=== PATIENT | female | born 2000 | race American Indian/Alaskan Native ===

== ENCOUNTER 2021-04-09 15:14 | Emergency (ER) | payer BC ==
[2021-04-09] MEDS ORDERED: fentaNYL 100 MCG/2 ML INJ ONE (16:45)
[2021-04-09] MEDS ORDERED: METOCLOPRAMIDE 10 MG/2 ML INJ IV ONE (16:49)
[2021-04-09] MEDS ORDERED: fentaNYL 100 MCG/2 ML INJ IV ONE ×2 (16:49→18:10)
[2021-04-09] MEDS ORDERED: SODIUM CHLORIDE 0.9% 1000 ML 1,000 ML IV ONE (16:49)
--- NOTE | 2021-04-09 16:53 | Emergency Department Report ---
HPI - General Chief Complaint: Abdominal Pain Time Seen by Provider: 04/09/21 16:23 - HPI HPI: Room 4 The patient is a 20-year-old female present with a chief complaint of nausea vomiting diarrhea. The patient states she ate a chicken biscuit yesterday morning and approximate 30 minutes later developed nausea vomiting diarrhea. Patient states after frequent vomiting she developed periumbilical pain. Patient states she is uncertain if she developed a fever. Patient denies dysuria. Patient currently gives her pain a score of 8.5/10 ED Past Medical Hx - Past Medical History Hx Psychiatric Treatment: Yes (anxiety, depression) - Surgical History Past Surgical History?: No - Family History Family history: no significant - Social History Smoking Status: Never Smoker Substance Use Type: None (Denies illicit drug use), Alcohol (Occasional) - Medications Home Medications: Home Medications Medication Instructions Recorded Confirmed Last Taken Type Ciprofloxacin HCl 500 mg PO BID #20 tablet 04/09/21 Unknown Rx Dicyclomine [Bentyl] 20 mg PO QID #20 tablet 04/09/21 Unknown Rx HYDROcodone/APAP 5-325 [[place] 1 - 2 each PO Q6HR PRN #10 tablet 04/09/21 Unknown Rx 5/325] Promethazine [Phenergan] 25 mg PO Q6HR PRN #20 tab 04/09/21 Unknown Rx Promethazine [Phenergan] 25 mg NC Q6HR PRN #5 supp.rect 04/09/21 Unknown Rx ED Review of Systems ROS: Stated complaint: N/V Other details as noted in HPI Constitutional: fever (?) Eyes: denies: eye pain ENT: denies: throat pain Respiratory: no symptoms reported Cardiovascular: denies: chest pain Endocrine: no symptoms reported Gastrointestinal: abdominal pain, nausea, vomiting, diarrhea Genitourinary: denies: dysuria Musculoskeletal: denies: back pain Neurological: denies: headache Physical Exam - Physical Exam Vital Signs: Vital Signs 04/09/21 16:11 Temperature 97.4 F L Pulse Rate 82 Respiratory 18 Rate Blood Pressure 134/35 O2 Sat by Pulse 100 Oximetry Physical Exam: GENERAL: The patient is well-developed well-nourished female lying on stretcher appearing to be in moderate discomfort with occasional shaking chills. [] HEENT: Normocephalic. Atraumatic. Extraocular motions are intact. NECK: Supple. Trachea midline CHEST/LUNGS: Clear to auscultation. There is no respiratory distress noted. HEART/CARDIOVASCULAR: Regular. There is no tachycardia. There is no gallop rub or murmur. ABDOMEN: Abdomen is soft, without voluntary guarding or rebound. Patient complains of periumbilical pain. Patient has normal bowel sounds. There is no abdominal distention. SKIN: There is no rash. There is no edema. There is no diaphoresis. NEURO: The patient is awake, alert, and oriented. The patient is cooperative. The patient has no focal neurologic deficits. The patient has normal speech MUSCULOSKELETAL: There is no evidence of acute injury. ED Course Vital Signs 04/09/21 16:11 Temperature 97.4 F L Pulse Rate 82 Respiratory 18 Rate Blood Pressure 134/35 O2 Sat by Pulse 100 Oximetry - Reevaluation(s) Reevaluation #1: 04/09/21 21:26 Patient passed p.o. challenge ED Medical Decision Making - Lab Data Result diagrams: 04/09/21 17:06 04/09/21 17:06 Laboratory Tests 04/09/21 04/09/21 04/09/21 17:06 17:06 17:06 WBC 16.8 H RBC 4.42 Hgb 13.3 Hct 39.1 MCV 89 MCH 30 MCHC 34 RDW 12.4 L Plt Count 258 Add Manual Diff Complete Total Counted 100 Seg Neutrophils % External Relations Director Seg Neuts % (Manual) 86.0 H Lymphocytes % (Manual) 10.0 L Monocytes % (Manual) 4.0 Nucleated RBC % Not Reportable Seg Neutrophils # Man 14.4 H Band Neutrophils # 0.0 Lymphocytes # (Manual) 1.7 Abs React Lymphs (Man) 0.0 Monocytes # (Manual) 0.7 Eosinophils # (Manual) 0.0 Basophils # (Manual) 0.0 Metamyelocytes # 0.0 Myelocytes # 0.0 Promyelocytes # 0.0 Blast Cells # 0.0 WBC Morphology Not Reportable Hypersegmented Neuts Not Reportable Hyposegmented Neuts Not Reportable Hypogranular Neuts Not Reportable Smudge Cells Not Reportable Toxic Granulation Not Reportable Toxic Vacuolation Not Reportable Dohle Bodies Not Reportable Pelger-Huet Anomaly Not Reportable Latasha Rods Not Reportable Platelet Estimate Not Reportable Clumped Platelets Not Reportable Plt Clumps, EDTA Not Reportable Large Platelets Not Reportable Giant Platelets Not Reportable Platelet Satelliting Not Reportable Plt Morphology Comment Not Reportable RBC Morphology Normal Dimorphic RBCs Not Reportable Polychromasia Not Reportable Hypochromasia Not Reportable Poikilocytosis Not Reportable Anisocytosis Not Reportable Microcytosis Not Reportable Macrocytosis Not Reportable Spherocytes Not Reportable Pappenheimer Bodies Not Reportable Sickle Cells Not Reportable Target Cells Not Reportable Tear Drop Cells Not Reportable Ovalocytes Not Reportable Helmet Cells Not Reportable Nicholson-Fries Bodies Not Reportable [place] Rings Not Reportable [place] Cells Not Reportable Bite Cells Not Reportable Crenated Cell Not Reportable Elliptocytes Not Reportable Acanthocytes (Spur) Not Reportable Rouleaux Not Reportable Hemoglobin C Crystals Not Reportable Schistocytes Not Reportable Malaria parasites Not Reportable Frank Bodies Not Reportable Hem Pathologist Commnt No Sodium 141 Potassium 3.7 Chloride 106.5 Carbon Dioxide 18 L Anion Gap 20 BUN 13 Creatinine 1.2 Estimated GFR > 60 BUN/Creatinine Ratio 11 Glucose 152 H Calcium 9.3 Total Bilirubin 0.40 AST 23 ALT 19 Alkaline Phosphatase 68 Total Protein 7.8 Albumin 4.5 Albumin/Globulin Ratio 1.4 Lipase 14 HCG, Qual Negative Urine Color Urine Turbidity Urine pH Ur Specific [place] Urine Protein Urine Glucose (UA) Urine Ketones Urine Blood Urine Nitrite Urine Bilirubin Urine Urobilinogen Ur Leukocyte Esterase Urine WBC (Auto) Urine RBC (Auto) U Epithel Cells (Auto) Urine Mucus 04/09/21 Unknown WBC RBC Hgb Hct MCV MCH MCHC RDW Plt Count Add Manual Diff Total Counted Seg Neutrophils % Seg Neuts % (Manual) Lymphocytes % (Manual) Monocytes % (Manual) Nucleated RBC % Seg Neutrophils # Man Band Neutrophils # Lymphocytes # (Manual) Abs React Lymphs (Man) Monocytes # (Manual) Eosinophils # (Manual) Basophils # (Manual) Metamyelocytes # Myelocytes # Promyelocytes # Blast Cells # WBC Morphology Hypersegmented Neuts Hyposegmented Neuts Hypogranular Neuts Smudge Cells Toxic Granulation Toxic Vacuolation Dohle Bodies Pelger-Huet Anomaly Latasha Rods Platelet Estimate Clumped Platelets Plt Clumps, EDTA Large Platelets Giant Platelets Platelet Satelliting Plt Morphology Comment RBC Morphology Dimorphic RBCs Polychromasia Hypochromasia Poikilocytosis Anisocytosis Microcytosis Macrocytosis Spherocytes Pappenheimer Bodies Sickle Cells Target Cells Tear Drop Cells Ovalocytes Helmet Cells Nicholson-Fries Bodies [place] Rings [place] Cells Bite Cells Crenated Cell Elliptocytes Acanthocytes (Spur) Rouleaux Hemoglobin C Crystals Schistocytes Malaria parasites Frank Bodies Hem Pathologist Commnt Sodium Potassium Chloride Carbon Dioxide Anion Gap BUN Creatinine Estimated GFR BUN/Creatinine Ratio Glucose Calcium Total Bilirubin AST ALT Alkaline Phosphatase Total Protein Albumin Albumin/Globulin Ratio Lipase HCG, Qual Urine Color Yellow Urine Turbidity Clear Urine pH 7.0 Ur Specific [place] 1.038 H Urine Protein <15 mg/dl Urine Glucose (UA) Neg Urine Ketones 20 Urine Blood Mod Urine Nitrite Neg Urine Bilirubin Neg Urine Urobilinogen < 2.0 Ur Leukocyte Esterase Neg Urine WBC (Auto) 1.0 Urine RBC (Auto) 3.0 U Epithel Cells (Auto) 2.0 Urine Mucus 2+ - Radiology Data Radiology results: report reviewed (CT abdomen pelvis), image reviewed (CT abdomen pelvis) [facility] [address] [id number] Cat Scan Report Signed Patient: RASHAD SOSA MR#: [id number] : 2000 Acct:[id number] Age/Sex: 20 / F ADM Date: 04/09/21 Loc: ED Attending Dr: Ordering Physician: ANDRÉS RUTLEDGE MD Date of Service: 04/09/21 Procedure(s): CT abdomen pelvis w con Accession Number(s): [id number] cc: ANDRÉS RUTLEDGE MD CT ABDOMEN AND PELVIS WITH CONTRAST INDICATION / CLINICAL INFORMATION: Periumbilical abdominal pain, intractable nausea v. TECHNIQUE: Axial CT images were obtained through the abdomen and pelvis after IV contrast. All CT scans at this location are performed using CT dose reduction for ALARA by means of automated exposure control. COMPARISON: None available. FINDINGS: LOWER CHEST: No significant abnormality. LIVER: No significant abnormality. GALLBLADDER: No significant abnormality. BILE DUCTS: No significant abnormality. PANCREAS: No significant abnormality. SPLEEN: No significant abnormality. ADRENALS: No significant abnormality. RIGHT KIDNEY / URETER: No significant abnormality. LEFT KIDNEY / URETER: No significant abnormality. STOMACH / SMALL BOWEL: No significant abnormality. COLON: No significant abnormality. APPENDIX: No significant abnormality. Best seen sagittal image 73-69. PERITONEUM: Mild free fluid in the pelvis. No free air. No complex fluid collection. LYMPH NODES: No significant adenopathy. AORTA / ARTERIES: No significant abnormality. IVC / VEINS: No significant abnormality. URINARY BLADDER: No significant abnormality. REPRODUCTIVE ORGANS: Physiologic changes are noted of the uterus and bilateral ovaries with simple ovarian cyst. ADDITIONAL FINDINGS: None. SKELETAL SYSTEM: No significant abnormality. IMPRESSION: 1. No acute findings or changes are noted of the abdomen or pelvis. 2. Physiologic changes are noted of the uterus and bilateral ovaries. Free fluid in the pelvis may also be physiologic in this female patient Signer Name: Shahbaz Gregory MD Signed: 04/09/2021 8:18 PM Workstation Name: [id number] Transcribed By: Dictated By: SHAHBAZ GREGORY Electronically Authenticated By: SHAHBAZ GREGORY Signed Date/Time: 04/09/212017 DD/ 09 TD/TT: Print Cancel - Differential Diagnosis Gastroenteritis, Salmonella, UTI, pyelonephritis, SBO Critical care attestation.: If time is entered above; I have spent that time in minutes in the direct care of this critically ill patient, excluding procedure time. ED Disposition Clinical Impression: Gastroenteritis Disposition: DC-01 TO HOME OR SELFCARE Is pt being admited?: No Does the pt Need Aspirin: No Condition: Stable Instructions: Abdominal Pain (ED), Salmonella Gastroenteritis, Adult, Viral Gastroenteritis, Adult Additional Instructions: Return to the emergency department should you develop worsening symptoms, inability to tolerate food or liquids, high fever or any other concerns Prescriptions: Dicyclomine [Bentyl] 20 mg PO QID #20 tablet Ciprofloxacin HCl 500 mg PO BID #20 tablet HYDROcodone/APAP 5-325 [[place] 5/325] 1 - 2 each PO Q6HR PRN #10 tablet PRN Reason: Pain Promethazine [Phenergan] 25 mg PO Q6HR PRN #20 tab PRN Reason: Nausea Promethazine [Phenergan] 25 mg NC Q6HR PRN #5 supp.rect PRN Reason: Vomiting Referrals: PRIMARY CARE, [Primary Care Provider] - 3-5 Days ISIDRO PRESCOTT MD [Staff Physician] - 3-5 Days (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 Please follow-up with him for further evaluation) Time of Disposition: 21:31
[2021-04-09 17:15] LABS: Hematocrit 39.1 % (30.3-42.9); Hemoglobin 13.3 gm/dl (10.1-14.3); Mean Corpuscular HGB Conc 34 % (30-34); Mean Corpuscular Volume 89 fl (79-97); Platelet Count 258 K/mm3 (140-440); Red Blood Count 4.42 M/mm3 (3.65-5.03); Red Cell Distribution Width 12.4 % (13.2-15.2)
[2021-04-09 17:39] LABS: Alanine Aminotransferase 19 units/L (7-56); Albumin 4.5 g/dL (3.9-5); BUN/Creatinine Ratio 11; Blood Urea Nitrogen 13 mg/dL (7-17); Calcium 9.3 mg/dL (8.4-10.2); Hemolysis Index 6
[2021-04-09] MEDS ORDERED: MORPHINE 4 MG/1 ML INJ IV ONE (18:05)
[2021-04-09] MEDS ORDERED: ONDANSETRON 4 MG/2 ML INJ IV ONE (18:28)
[2021-04-09 19:43] VITALS: BP 116/57
[2021-04-09 19:48] LABS: RBC Morphology Normal; Total Cells Counted 100
--- NOTE | 2021-04-09 20:23 | Cat Scan Report ---
CT ABDOMEN AND PELVIS WITH CONTRAST INDICATION / CLINICAL INFORMATION: Periumbilical abdominal pain, intractable nausea v. TECHNIQUE: Axial CT images were obtained through the abdomen and pelvis after IV contrast. All CT scans at this location are performed using CT dose reduction for ALARA by means of automated exposure control. COMPARISON: None available. FINDINGS: LOWER CHEST: No significant abnormality. LIVER: No significant abnormality. GALLBLADDER: No significant abnormality. BILE DUCTS: No significant abnormality. PANCREAS: No significant abnormality. SPLEEN: No significant abnormality. ADRENALS: No significant abnormality. RIGHT KIDNEY / URETER: No significant abnormality. LEFT KIDNEY / URETER: No significant abnormality. STOMACH / SMALL BOWEL: No significant abnormality. COLON: No significant abnormality. APPENDIX: No significant abnormality. Best seen sagittal image 73-69. PERITONEUM: Mild free fluid in the pelvis. No free air. No complex fluid collection. LYMPH NODES: No significant adenopathy. AORTA / ARTERIES: No significant abnormality. IVC / VEINS: No significant abnormality. URINARY BLADDER: No significant abnormality. REPRODUCTIVE ORGANS: Physiologic changes are noted of the uterus and bilateral ovaries with simple ov francine cyst. ADDITIONAL FINDINGS: None. SKELETAL SYSTEM: No significant abnormality. IMPRESSION: 1. No acute findings or changes are noted of the abdomen or pelvis. 2. Physiologic changes are noted of the uterus and bilateral ovaries. Free fluid in the pelvis may al so be physiologic in this female patient Signer Name: Shahbaz James MD Signed: 04/09/2021 8:18 PM Workstation Name: [id number]
[2021-04-09 20:25] LABS: Bilirubin,Urine NEG (Negative); Blood,Urine MOD (Negative); Color,Urine Yellow (Yellow); Mucus,Urine 2+ /HPF; Protein,Urine <15 mg/dL mg/dL (Negative); Urobilinogen,Urine < 2.0 mg/dL (<2.0)
[2021-04-09] MEDS ORDERED: HYDROmorphone 1 MG/1 ML INJ IV ONE (20:49)
[2021-04-09] MEDS ORDERED: DICYCLOMINE 20 MG/2 ML INJ IM ONE (20:49)
== END 2021-04-09 21:51 | disposition home or self-care (01) ==
LOC: ED 15:14
DX: K52.9 Noninfective gastroenteritis and colitis, unspecified (principal); F41.9 Anxiety disorder, unspecified; F32.9 Major depressive disorder, single episode, unspecified; Z79.2 Long term (current) use of antibiotics; Z79.899 Other long term (current) drug therapy
CPT/HCPCS: 36415; 74177; 80053; 81001; 82550; 83690; 84703; 85007; 85025; 96361; 96372; 96374; 96375; 99284; J0500; J1170; J2270; J2405; J2765; J3010; J7030; Q9967